=== PATIENT | female | born 2000 | race Hispanic/Latino ===

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

== ENCOUNTER 2020-11-01 20:16 | Emergency (ER) | payer SELFPAY ==
[2020-11-01] MEDS ORDERED: KETOROLAC TROMETHAMINE 30MG/ML ONE (21:14)
[2020-11-01] MEDS ORDERED: SODIUM CHLORIDE 0.9% 1000ML 1,000 ML IV ONE (21:14)
[2020-11-01 21:59] LABS: BASOPHILS % (AUTO) 0.2 % (0.0-5.0); EOSINOPHILS % (AUTO) 0.1 % (0.0-8.0); HEMATOCRIT 43.5 % (36-48); LYMPHOCYTES % (AUTO) 4.9 % (21.0-51.0); MEAN CORPUSCULAR HEMOGLOBIN 29.3 pg (27.0-33.0); MEAN CORPUSCULAR HGB CONC 33.3 g/dL (32.0-36.0); MEAN CORPUSCULAR VOLUME 87.9 fL (80-100); MONOCYTES % (AUTO) 3.3 % (3.0-13.0); NEUTROPHILS % (AUTO) 91.2 % (40.0-77.0); PLATELET COUNT (AUTO) 236 K/uL (130-400); RED BLOOD CELL COUNT(AUTO) 4.95 MIL/uL (4.00-5.50); RED CELL DISTRIBUTION WIDTH 12.7 % (11.0-15.5)
[2020-11-01 22:00] LABS: APPEARANCE,URINE Clear (CLEAR); BILIRUBIN,URINE Negative (NEGATIVE); COLOR,URINE Yellow (YELLOW); GLUCOSE, URINE (UA) Negative (NEGATIVE); KETONES,URINE Trace mg/dL (NEGATIVE); LEUKOCYTE ESTERASE ,URINE Small (NEGATIVE); NITRATE,URINE Negative (NEGATIVE); OCCULT BLOOD,URINE Negative (NEGATIVE); PROTEIN,URINE Negative (NEGATIVE)
[2020-11-01 22:05] LABS: HCG,QUAL RESULT NEGATIVE (NEGATIVE)
[2020-11-01 22:09] LABS: RAPID GROUP A STREP NEGATIVE (NEGATIVE)
[2020-11-01 22:19] LABS: CREATININE 0.9 mg/dL (0.5-1.5); POTASSIUM 3.5 mmol/L (3.5-5.1)
[2020-11-01 22:22] LABS: BILIRUBIN,TOTAL 0.7 mg/dL (0.2-1.0); TOTAL PROTEIN, SERUM 7.9 g/dL (6.0-8.3)
[2020-11-01 22:24] LABS: BACTERIA,URINE Moderate /HPF (None Seen); MUCUS,URINE Moderate LPF (None Seen); RBC,URINE None Seen /HPF (0-1); SQUAMOUS EPITHELIAL CELL,UR Few /HPF (0-2)
[2020-11-01] MEDS ORDERED: CEFTRIAXONE SODIUM 1 GM ONE (22:47)
== END 2020-11-01 23:25 | disposition home or self-care (01) ==
LOC: EDH 20:16
DX: N30.90 Cystitis, unspecified without hematuria (principal); E86.0 Dehydration; Z87.891 Personal history of nicotine dependence
CPT/HCPCS: 36415; 80053; 81001; 81025; 85025; 87088; 87804 ×2; 87880; 96361; 96365; 96375; 99284; J0696; J1885; J7030

== ENCOUNTER 2024-10-23 07:18 | Emergency (ER) | payer SELFPAY ==
[~2024-10-23] VITALS: Ht 154.9 cm; Wt 70.8 kg
[2024-10-23] MEDS: ondanSETRON ODT 4MG TAB SL ONE (09:08)
[2024-10-23] MEDS: dexaMETHasone SOD PHOSPHATE 4 MG/ML 1ML VIAL IM ONE (09:08)
--- NOTE | 2024-10-23 09:54 | ERN ---
ED Note History of Present Illness Stated Complaint: FLU LIKE SYMPTOMS Chief Complaint: Flu Symptoms Time Seen by MD: 07:30 Dictation: 24-year-old female presents to the ED for evaluation of flu-like symptoms onset two days ago. Patient reports cough, nasal congestion, sore throat and vomiting, but denies any other associated symptoms at this time. Patient mentioned she had seven emesis episodes yesterday. Home Meds Active Scripts Oseltamivir Phosphate (Tamiflu) 75 Mg Cap, 75 MG PO BID for 5 Days, #10 CAP Prov:SERVANDO WOLF MD 10/23/24 Past Medical History Past Medical History: No Pertinent History Surgical History: None LMP: Oct 02, 2024 : 1 Para: 0 Aborts: 1 Review of System Dictation Constitutional: Negative for fever,chills, and weight loss Eyes: Negative for injury, pain,redness, and discharge ENT: Positive for nasal congestion, sore throat Negative for injury or swelling Cardiovascular: Negative for chest pain, palpitations, and edema Respiratory: Positive for cough Negative for shortness of breath and wheezing, Abdomen/GI: Positive for vomiting Negative for abdominal pain, nausea, diarrhea, and constipation Back: Negative for injury and pain : Negative for injury, bleeding and discharge MS/Extremity: Negative for injury and deformity Skin: Negative for rash, and discoloration Neuro: Negative for headache, weakness, numbness, tingling, and seizure Psych: Negative for suicide ideation, homicidal ideation, and hallucinations Initial Vital Sign VS Vital Signs Date Time Temp Pulse Resp B/P (MAP) Pulse Ox O2 Delivery O2 Flow Rate FiO2 10/23/24 07:19 99.0 109 20 128/88 97 Room Air 0 10/23/24 09:00 21 Physical Exam Dictation General: awake, alert, NAD Head/Face: Normocephalic, atraumatic Eyes: PERRL, EOMI, vision at baseline ENT: oral cavity clear, TMs clear, nasal congestion Neck: Trachea midline, supple, no nuchal rigidity Cardiovascular: RRR, normal S1/S2, No MRGs, no JVD Respiratory: CTAB, no respiratory distress, No rales or wheezes Abdomen: Soft, non-tender, non-distended, normal bowel sounds, no guarding or rebound. Skin: Warm, dry, normal turgor, no rash MS/Extremity: Pulses equal, no cyanosis, neurovascular intact, FROM Neuro: COAx4, GCS 15, strength 5/5, CN 2-12 intact, normal cerebellar exam, normal gait, Psych: Normal behavior, mood, and affect normal Results (Laboratory/Radiology) Laboratory/Radiology Laboratory Tests Test 10/23/24 07:25 Influenza Type A Antigen Positive For Type A Influenza Type B Antigen Negative For Type B SARS-CoV-2 Antigen (Rapid) PRESUMPTIVE NEGATIVE Group A Streptococcus Rapid negative (NEGATIVE) Labs Reviewed?: Yes ED Course ED Course Orders Procedure Category Date Status Time Influenza Type A & B, LAB 10/23/24 Complete Rapid 07:18 Covid19 (Sars Antigen LAB 10/23/24 Complete Rapid) 07:18 Rapid (Group A Strep) LAB 10/23/24 Complete 07:18 Ondansetron Odt 4mg PHA 10/23/24 Complete Tab (Zofran 4mg Odt) 08:00 Dexamethasone 4mg/Ml PHA 10/23/24 Complete 1ml Vial (Dexametha 08:00 ,Urine Test LAB 10/23/24 Logged 08:02 Chest 1vw RAD 10/23/24 Resulted 08:02 Current Medications Medications (Trade) Dose Ordered Sig/Mona Route PRN Reason Start Time Stop Time Status Last Admin Dose Admin Dexamethasone Sodium Phosphate (dexaMETHasone 4MG/ML 1ML VIAL) 10 mg ONCE ONCE IM 10/23/24 08:00 10/23/24 08:01 DC 10/23/24 09:08 Ondansetron HCl (zoFRAN 4MG ODT) 4 mg ONCE ONCE SL 10/23/24 08:00 10/23/24 08:01 DC 10/23/24 09:08 Vital Signs Date Time Temp Pulse Resp B/P (MAP) Pulse Ox O2 Delivery O2 Flow Rate FiO2 10/23/24 12:09 99.0 90 17 122/80 99 Room Air* 0 21 10/23/24 10:10 99.1 96 18 118/77 97 Room Air* 0 10/23/24 09:00 98.8 102 20 130/93 98 Room Air* 0 10/23/24 07:19 99.0 109 20 128/88 97 Room Air 0 Medical Decision Making MDM MDM: Differential diagnosis: Viral syndrome, influenza, URI Risk of complication and/or morbidity or mortality of patient management: None Medications-Per medication reconciliation Need for hospitalization: Patient does not meet criteria for hospitalization. Need for emergency major/minor surgery: No There are no social concerns with this patient. Prescription drug management Prescriptions will include symptomatic care I independently interpreted the test that were performed, results were reviewed by me and considered findings on radiology if ordered. Medical management and examination interpretation discussions were had by me with other qualified healthcare professionals as indicated for the patient's care. DX & DISP Disposition: Discharge Departure Impression: Primary Impression: Influenza A Additional Impression: Acute URI Condition: Stable Scripts Oseltamivir Phosphate (Tamiflu) 75 Mg Cap 75 MG PO BID for 5 Days, #10 CAP Prov: SERVANDO WOLF MD 10/23/24 Referrals: SELF,REFERRAL (PCP) SERVANDO WOLF MD Oct 23, 2024 09:54
--- NOTE | 2024-10-23 10:14 | HMCIMG ---
CHEST 1VW REASON: cough, sob COMPARISON: None. FINDINGS: Single view of the chest was obtained. Lungs are clear. Heart size is normal. There is no pulmonary vascular congestion. Mediastinum and bony thorax appear unremarkable. IMPRESSION: 1. Normal single view chest x-ray.
[2024-10-23 11:04] LABS: RAPID GROUP A STREP negative (NEGATIVE)
[2024-10-23 11:18] LABS: COVID19 (SARS ANTIGEN RAPID) PRESUMPTIVE NEGATIVE (NEGATIVE); INFLUENZA TYPE B Negative For Type B (NEGATIVE)
[2024-10-23 11:20] LABS: INFLUENZA TYPE A Positive For Type A (NEGATIVE)
[2024-10-23] MEDS ORDERED: OSEL75 PO (11:30)
[2024-10-23 12:09] VITALS: BP 122/80; PULSE 90; RESP 17; TEMP 99; O2SAT 99
== END 2024-10-23 12:08 | disposition home or self-care (01) ==
LOC: EDH 07:18
DX: J10.1 Influenza due to other identified influenza virus with other respiratory manifestations (principal); Z20.822 Contact with and (suspected) exposure to COVID-19; Z79.899 Other long term (current) drug therapy
CPT/HCPCS: 99284; 71045; 87426; 87880; 87804 ×2; 96372; J1100